=== PATIENT | male | born 1975 | race Hispanic/Latino ===

== ENCOUNTER 2018-01-06 13:20 | Emergency (ER) | payer BC ==
[2018-01-06 13:25] VITALS: TEMP 98.3
--- NOTE | 2018-01-06 14:16 | ED PDOC ---
Arrival/HPI - General Chief Complaint: Dizziness/Lightheaded Time Seen by Provider: 01/06/18 14:09 Historian: Patient - History of Present Illness Narrative History of Present Illness (Text): 01/06/18 14:09 42 year old male, with past medical history of hypertension tension and cardiac stents (08/2016), presents to the Emergency department for evaluation of an episode of bilateral upper extremity weakness and lightheadedness at 12:00pm this morning. Patient states he was driving [place] when his hands became numb associated with dizziness, which lasted for approximately 20-40 minutes. Patient denies any loss of consciousness but informs similar symptoms on Saturday. Patient is currently asymptomatic and without any complaints. Patient denies any fever, chills, nausea, vomiting, diarrhea, abdominal pain, chest pain, shortness of breath or any other complaints. Patient presents to the Emergency department for medical evaluation. Time/Duration: 1-3 hours Symptom Onset: Sudden Symptom Course: Resolved Activities at Onset: Other (Driving) Context: [employer] Past Medical History - Provider Review Nursing Documentation Reviewed: Yes - Infectious Disease Hx of Infectious Diseases: None - Cardiac Hx Cardiac Disorders: Yes Other/Comment: cardiac stent - Pulmonary Hx Respiratory Disorders: No - Neurological Hx Neurological Disorder: No - Psychiatric Hx Substance Use: No - Anesthesia Hx Anesthesia: No Family/Social History - Physician Review Nursing Documentation Reviewed: Yes Family/Social History: No Known Family HX Smoking Status: Current Some Days Smoker Hx Alcohol Use: Yes Frequency of alcohol use: Socially Hx Substance Use: No Allergies/Home Meds Allergies/Adverse Reactions: Allergies No Known Allergies Allergy (Unverified 01/06/18 14:12) Home Medications: Home Meds Medication Instructions Recorded Confirmed Aspirin [Ecotrin] 81 mg PO DAILY 01/06/18 01/06/18 Clopidogrel [Plavix] 75 mg PO DAILY 01/06/18 01/06/18 Metoprolol Succinate [Toprol Xl] 25 mg PO DAILY 01/06/18 01/06/18 amLODIPine [Norvasc] 10 mg PO DAILY 01/06/18 01/06/18 Review of Systems - Physician Review All systems were reviewed & negative as marked: Yes - Review of Systems Constitutional: absent: Fevers Respiratory: absent: SOB Cardiovascular: absent: Chest Pain Gastrointestinal: absent: Abdominal Pain, Diarrhea, Nausea, Vomiting Neurological: Dizziness (resolved), Other (resolved) Physical Exam - Physical Exam Narrative Physical Exam (Text): 01/06/18 14:17 Gen: VS reviewed, alert, well developed, well nourished, nontoxic, mild distress ENT: normal pharynx Eye: EOMI, PERRL Neck: no JVD, supple, no adenopathy CV: regular rate, regular rhythm, no rubs,no murmur, no gallops, S1, S2, pulses equal and strong Pulm: no distress, clear to auscultation, no wheeze, no rhonchi, breath sounds equal, no rales Abd: soft, nontender, no guarding, no rebound, no rigidity, normal bowel sounds Ext: no edema Skin: good color, no rash, no cyanosis Psych: responds appropriately to questions, normal affect Neuro: oriented x3, CN2-12 intact grossly, motor intact, sensation intact Vital Signs Reviewed: Yes Vital Signs Temp Pulse Resp BP Pulse Ox 01/06/18 17:50 80 18 148/94 H 99 01/06/18 15:21 75 18 154/92 H 99 01/06/18 13:24 98.3 F 70 18 153/86 H 98 Temperature: Afebrile Blood Pressure: Hypertensive Pulse: Regular Respiratory Rate: Normal Appearance: Positive for: Well-Appearing, Non-Toxic, Comfortable Pain Distress: Mild Mental Status: Positive for: Alert and Oriented X 3 Medical Decision Making ED Course and Treatment: 01/06/18 14:17 Impression: 42 year old male presents to the Emergency department for evaluation of an transient episode of bilateral uppe extremity weakness and dizziness. Plan: -- CT of Head -- Labs -- CXR -- EKG -- Urinalysis -- Reassess and disposition Progress Notes: 01/06/18 15:[address] navarro, recommends MRi cervical spine and if negative patient can be discharged home 01/06/18 20:57 patient remained stable throughout ED course, no further symptoms during ED stay , patient is nontoxic and stable for discharge, patient also has a cardiology appointment tomorrow. - Lab Interpretations Lab Results: 01/06/18 14:00 01/06/18 14:00 Lab Results 01/06/18 14:00: Sodium 139, Potassium 4.5, Chloride 98, Carbon Dioxide 25, Anion Gap 21 H, BUN 12, Creatinine 0.8, Est GFR ( Amer) > 60, Est GFR ( Non-Af Amer) > 60, Random Glucose 123 H, Calcium 9.6, Magnesium 1.9, Total Bilirubin 0.9, AST 51, ALT 56, Alkaline Phosphatase 59, Troponin I < 0.01, Total Protein 7.9, Albumin 4.7, Globulin 3.2, Albumin/Globulin Ratio 1.5 01/06/18 14:00: PT 11.9, INR 1.04, APTT 26.3 01/06/18 14:00: WBC 7.9, RBC 4.83, Hgb 14.9, Hct 43.0, MCV 89.0, MCH 30.8, MCHC 34.7, RDW 13.1, Plt Count 209, MPV 9.1, Gran % 79.0 H, Lymph % (Auto) 12.1 L, [place] % (Auto) 8.0 H, Eos % (Auto) 0.4 L, Baso % (Auto) 0.5, Gran # 6.20, Lymph # (Auto) 1.0 L, [place] # (Auto) 0.6, Eos # (Auto) 0.0, Baso # (Auto) 0.04 01/06/18 13:44: POC Glucose (mg/dL) 131 H - RAD Interpretation Narrative RAD Interpretations (Text): 01/06/18 16:[address] reviewed by radiologist, shows: No acute intracranial hemorrhage. No evidence of large acute infarct however note that the possibility of a small hyperacute infarct not excluded. Clinic correlation recommended. Chest X-ray reviewed by radiologist, shows: No active disease. MRI of Cervical Spine reviewed by radiologist, shows: The cervical spinal cord is normal in size, contour and signal intensity. No specific cause for transit upper extremity numbness is identified. There is no spinal stenosis. 20 degree kyphosis of the cervical spine between C2 and C6. 01/06/18 21:07 Radiology Orders: 01/06/18 14:12 CHEST ONE VIEW [RAD] Stat 01/06/18 14:13 Brain [HEAD W/O CONTRAST] [CT] Stat 01/06/18 15:40 SPINAL CANAL CERVICAL W/O CONT [MRI] Stat Facilitator: Radiologist - EKG Interpretation EKG Interpretation (Text): 01/06/18 14:39 1320: ekg my read: sinnus rhythm at 70 bpm, nml qrs, nml axis, lvh, inferior flipped t waves Interpreted by ED Physician: Yes Type: 12 lead EKG - Scribe Statement The provider has reviewed the documentation as recorded by the Scribe Beverly Choudhury. All medical record entries made by the Scribe were at my direction and personally dictated by me. I have reviewed the chart and agree that the record accurately reflects my personal performance of the history, physical exam, medical decision making, and the department course for this patient. I have also personally directed, reviewed, and agree with the discharge instructions and disposition. Disposition/Present on Arrival - Present on Arrival Any Indicators Present on Arrival: No History of DVT/PE: No History of Uncontrolled Diabetes: No Urinary Catheter: No History of Decub. Ulcer: No History Surgical Site Infection Following: None - Disposition Have Diagnosis and Disposition been Completed?: Yes Diagnosis: Paresthesia of arm Disposition: HOME/ ROUTINE Disposition Time: 20:58 Patient Problems: Current Active Problems Problem Status Onset Paresthesia of arm Acute Condition: GOOD Discharge Instructions (ExitCare): Paresthesias (DC) Print Language: ANGOLAN Additional Instructions: return for any new or worsening symptoms. follow up with a neurologist. Referrals: PCP,NO [Primary Care Provider] - Follow up with primary Christian Waite MD [Staff Provider] - Follow up with primary Forms: [employer] ([place])
[2018-01-06 14:35] LABS: BASO # 0.04 K/mm3 (0.0-2.0); BASO % 0.5 % (0.0-3.0); EOS % 0.4 % (1.5-5.0); GRAN # 6.2 (1.4-6.5); HEMOGLOBIN 14.9 g/dL (14.0-18.0); LYMPH % 12.1 % (22.0-35.0); MEAN CORPUSCULAR HEMOGLOBIN 30.8 pg (25.0-35.0); MEAN CORPUSCULAR HGB CONC 34.7 g/dl (31.0-37.0); MEAN PLATELET VOLUME 9.1 fl (7.0-11.0); MONO # 0.6 (0.1-0.6); RBC 4.83 10^6/uL (3.5-6.1); RED CELL DISTRIBUTION WIDTH 13.1 % (11.5-14.5); WHITE BLOOD COUNT 7.9 10^3/ul (4.5-11.0)
[2018-01-06 14:36] LABS: ALB/GLOB RATIO 1.5 (1.1-1.8); ALBUMIN 4.7 g/dL (3.0-4.8); ALT/SGPT 56 U/L (7-56); AST/SGOT 51 U/L (17-59); BLOOD UREA NITROGEN 12 mg/dL (7-21); CALCIUM 9.6 mg/dL (8.4-10.5); GFR AFRICAN-AMERICAN > 60; GFR NON-AFRICAN AMERICAN > 60
[2018-01-06 14:42] LABS: INR 1.04 (0.93-1.08); PARTIAL THROMBOPLASTIN TIME 26.3 Seconds (25.1-36.5); PROTHROMBIN TIME 11.9 SECONDS (9.4-12.5)
[2018-01-06 14:47] LABS: TROPONIN I < 0.01 ng/mL
--- NOTE | 2018-01-06 16:13 | CT ---
PROCEDURE: CT HEAD WITHOUT CONTRAST. HISTORY: Transient numbness. COMPARISON: None available. TECHNIQUE: Axial computed tomography images were obtained through the head/brain without intravenous contrast. Radiation dose: Total exam DLP = 886.05 mGy-cm. This CT exam was performed using one or more of the following dose reduction techniques: Automated exposure control, adjustment of the mA and/or kV according to patient size, and/or use of iterative reconstruction technique. FINDINGS: HEMORRHAGE: No acute parenchymal, subarachnoid or extra-axial hemorrhage. BRAIN: No evidence of large acute infarct. Note that the possibility of a small hyperacute infarct cannot be excluded on this exam No obvious parenchymal nor extra-axial mass or collection identified on this noncontrast study VENTRICLES: No obstructive hydrocephalus. . CALVARIUM: No acute calvarial fracture seen PARANASAL SINUSES: Unremarkable as visualized. No significant inflammatory changes. MASTOID AIR CELLS: Unremarkable as visualized. No inflammatory changes. OTHER FINDINGS: None. IMPRESSION: No acute intracranial hemorrhage. No evidence of large acute infarct however note that the possibility of a small hyperacute infarct not excluded. Clinic correlation recommended.
--- NOTE | 2018-01-06 16:16 | RAD ---
PROCEDURE: CHEST RADIOGRAPH, 1 VIEW HISTORY: chest pain COMPARISON: None available. FINDINGS: LUNGS: Clear. PLEURA: No pneumothorax or pleural fluid seen. CARDIOVASCULAR: Normal. OSSEOUS STRUCTURES: No significant abnormalities. VISUALIZED UPPER ABDOMEN: Normal. OTHER FINDINGS: None. IMPRESSION: No active disease.
--- NOTE | 2018-01-06 18:18 | CARD ---
APPROVED REPORT EKG Measurement Heart [id number] <Conclusion> Poor data quality, interpretation may be adversely affected Sinus rhythm with marked sinus arrhythmia Otherwise normal ECG
[2018-01-06 18:21] VITALS: BP 148/94; PULSE 80
[2018-01-06 21:19] VITALS: RESP 72; O2SAT 98
--- NOTE | 2018-01-07 11:22 | MRI ---
Date of service: 01/06/2018 PROCEDURE: MR CERVICAL SPINE WITHOUT CONTRAST HISTORY: transient bilateral arm numbness COMPARISON: None available. TECHNIQUE: Multiecho multiplanar sequences were performed through the cervical spine without the use of intravenous contrast. FINDINGS: There is reversal of normal cervical lordosis with moderate cervical kyphosis centered at C3-4. Vertebral height is normal. There is no acute fracture. Bone marrow signal is within normal limits. The craniocervical junction is normal. The atlantoaxial joint is normal. The cervical cord is normal in contour, caliber and has normal intrinsic signal. The paraspinous soft tissues are normal. C2-C3: No disc herniation, spinal canal stenosis or neural foraminal narrowing. C3-C4: Broad-based disc osteophyte complex and uncovertebral joint hypertrophy which in conjunction with mild facet arthropathy result in mild neural foraminal narrowing and mild spinal canal stenosis. C4-C5: Broad-based disc osteophyte complex which in conjunction with moderate left facet arthropathy result in mild left neural foraminal narrowing. No spinal canal stenosis. C5-C6: Broad-based disc osteophyte complex with superimposed left posterolateral and foraminal disc protrusions which impinge the exiting C6 nerve root. Also noted is severe left neural foraminal narrowing. C6-C7: No disc herniation, spinal canal stenosis or neural foraminal narrowing. C7-T1: No disc herniation, spinal canal stenosis or neural foraminal narrowing. OTHER FINDINGS: None. IMPRESSION: Mild multilevel degenerative disc disease, worse C5-6 with a left posterolateral and foraminal disc protrusions which impinge on the exiting left C6 nerve root. Also noted is severe left neural foraminal narrowing. No intrinsic cervical cord abnormality.
== END 2018-01-06 21:18 | disposition home or self-care (01) ==
LOC: ED 13:20
DX: R20.2 Paresthesia of skin (principal); I10 Essential (primary) hypertension